=== PATIENT | female | born 1975 | race Caucasian/White ===

== ENCOUNTER 2020-05-21 08:34 | Outpatient (CLI) | payer BC, SELFPAY ==
--- NOTE | ~2020-05-21 | MR_ITS ---
EXAMINATION: MR brain/brain stem wo con DATE: 05/21/2020 09:51 INDICATION: Seizure. TECHNIQUE: Magnetic resonance imaging (MRI) of the brain and brainstem was performed without intraven ous contrast. Sequences included sagittal and axial T1-weighted FSE, axial diffusion-weighted FS EPI, axial T2*-weighted GRE, axial T2-weighted FLAIR Propeller, axial T2-weighted Propeller, coronal T2-w eighted FLAIR, and coronal T1-weighted 3D FSPGR. Apparent diffusion coefficient (ADC) maps were creat ed. COMPARISON: None. FINDINGS: There is chronic encephalomalacia in anterior right frontal lobe. There is no intracranial hemorrhage, acute infarction, or abnormal intracranial mass lesion. The hippocampi are normal and sym metric. The ventricles are normal in size. There is mild mucosal thickening in the ethmoid sinuses. T he orbits are normal. The mastoid air cells are normal. IMPRESSION: 1. Chronic encephalomalacia in anterior right frontal lobe. Reviewed, dictated and finalized at location A.
== END 2020-05-21 08:35 | disposition home or self-care (01) ==
PROVIDERS: PCP Family Medicine; Visit Provider Psychiatry & Neurology Neurology
DX: R56.9 Unspecified convulsions (principal); G93.89 Other specified disorders of brain
CPT/HCPCS: 70551

== ENCOUNTER → 2020-07-28 14:21 | Outpatient (CLI) | payer BC, SELFPAY ==
--- NOTE | ~2020-07-28 | MM_ITS ---
EXAMINATION: MM screening [facility] w [facility]o HISTORY: Screening mammogram TECHNIQUE: Craniocaudal and mediolateral oblique 3-D tomosynthesis images were obtained and synthetic 2-D images were generated. CAD analysis was submitted and interpreted. COMPARISON: 07/18/2019 bilateral digital screening mammogram 05/17/2017 diagnostic left digital mammogram 04/23/2017 bilateral digital screening mammogram BREAST PARENCHYMAL COMPOSITION: The breasts are heterogeneously dense, which may obscure small masses . FINDINGS: There is no evidence of suspicious mass, calcification, or architectural distortion to sugg est malignancy in either breast. There has been no suspicious interval change. IMPRESSION: 1. No mammographic evidence of malignancy. 2. Recommend routine screening mammography in one year. BI-RADS Category 1: Negative Reviewed, dictated and finalized at location A.
== END ==
PROVIDERS: Visit Provider Obstetrics & Gynecology
DX: Z12.31 Encounter for screening mammogram for malignant neoplasm of breast (principal)
CPT/HCPCS: 77063; 77067

== ENCOUNTER → 2021-08-16 15:04 | Outpatient (CLI) | payer BC, SELFPAY ==
--- NOTE | ~2021-08-16 | MM_ITS ---
EXAMINATION: MM screening [facility] w [facility] HISTORY: Screening TECHNIQUE: Craniocaudal and mediolateral oblique 3-D tomosynthesis images were obtained and synthetic 2-D images were generated. CAD analysis was submitted and interpreted. COMPARISON: Comparison to multiple prior studies sequentially, with oldest reviewed study dated 04/23. BREAST PARENCHYMAL COMPOSITION: The breasts are heterogeneously dense, which may obscure small masses . FINDINGS: There is no evidence of suspicious mass, calcification, or architectural distortion to sugg est malignancy in either breast. There has been no suspicious interval change. IMPRESSION: 1. No mammographic evidence of malignancy. 2. Recommend routine screening mammography in one year. BI-RADS Category 1: Negative Reviewed, dictated and finalized at location A.
== END ==
PROVIDERS: Visit Provider Obstetrics & Gynecology
DX: Z12.31 Encounter for screening mammogram for malignant neoplasm of breast (principal)
CPT/HCPCS: 77063; 77067

== ENCOUNTER → 2022-08-23 13:17 | Outpatient (CLI) | payer BC, SELFPAY ==
--- NOTE | ~2022-08-23 | MM_ITS ---
EXAMINATION: MM screening [facility] w [facility] HISTORY: Screening TECHNIQUE: Craniocaudal and mediolateral oblique 3-D tomosynthesis images were obtained and synthetic 2-D images were generated. CAD analysis was submitted and interpreted. COMPARISON: Comparison to multiple prior studies sequentially, with oldest reviewed study dated 04/23. BREAST PARENCHYMAL COMPOSITION: The breasts are heterogeneously dense, which may obscure small masses FINDINGS: There is no evidence of suspicious mass, calcification, or architectural distortion to sugg est malignancy in either breast. There has been no suspicious interval change. IMPRESSION: 1. No mammographic evidence of malignancy. 2. Recommend routine screening mammography in one year. BI-RADS Category 1: Negative Reviewed, dictated and finalized at location A.
== END ==
PROVIDERS: PCP Family Medicine; Visit Provider Obstetrics & Gynecology
DX: Z12.31 Encounter for screening mammogram for malignant neoplasm of breast (principal)
CPT/HCPCS: 77063; 77067

== ENCOUNTER 2022-08-25 01:01 | Day surgery (SDC) | payer BC, SELFPAY ==
[2022-08-11 13:02] VITALS: BMI 29.8
--- NOTE | 2022-08-24 14:58 | PM.HPGS ---
History of Present Illness History of Present Illness Consent: Risks, benefits, and alternatives have been discussed and questions answered. Patient agrees to proceed with procedure. Chief complaint: positive hemoccult stool, bloating Narrative: Aimee Cody is a 47 year old female undergoing colonoscopy to investigate a stool which was positive for blood Review of Systems Review of Systems: All systems reviewed & are unremarkable except as noted in HPI and below PMFSH Past Medical History Medical History Epilepsy Family History Family History Father Diabetes mellitus Hypertension Social History Social History Smoking packs per day: 1 Smoking cigarettes per day: 20.0 Years smoked: 8 Smoking pack-years: 8.00 Smoking status: Former smoker Second hand tobacco smoke exposure: No Smoking end date: 11/05/00 Alcohol intake: current Alcohol use details: seldom; socially Substance use: never Substance use type: marijuana Last use: 01/2022 Living arrangements: other Additional living arrangements comments: with sp Gender identity (if verbalized by the patient): Female Meds Home Medications and Allergies Home Medications Medication Instructions Recorded Confirmed Type phenytoin sodium extended 100 mg See Rx Instructions .Route 06/09/20 08/11/22 Rx capsule .COMPLEX #105 caps levonorgestrel 20 mcg/24 hours (8 1 device intrauterine ONCE 01/21/21 08/11/22 History yrs) 52 mg intrauterine device (Mirena) spironolactone 100 mg tablet 100 mg PO DAILY 08/11/22 08/11/22 History Allergies Allergy/AdvReac Type Severity Reaction Status Date / Time No Known Allergies Allergy Verified 08/25/22 10:03 Exam Resp: Auscultation: clear to auscultation bilaterally Cardio: Rate: regular rate Rhythm: regular rhythm GI: GI Palp: Yes Soft to palpation and No Tenderness to palpation present (GI) Assessment and Plan Assessment and plan (1) Blood in stool: Code(s): K92.1 - Melena Status: Acute Assessment and Plan: Colonoscopy with possible biopsy or polypectomy or cautery or injection of substances.
[2022-08-25 10:07] VITALS: BP 114/69; PULSE 89; RESP 18; TEMP 36.1; O2SAT 100
[2022-08-25] MEDS: LACTATED RINGERS 1,000 ML 150 ML IV CONT (10:17)
--- NOTE | 2022-08-25 10:48 | P.PNAN_ITS ---
Anes - Initial Pre Proc Eval Procedure: Operation Date: 08/25/22 11:15 Proposed Procedures p Colonoscopy - Al Awad MD Date/Time: 08/25/22 10:48 Surgeon: Al Awad MD Pre Op Diagnosis: positive hemoccult stool, bloating Patient Data Age: 47 Gender: F Height: 1.7 m Weight: 86.6 kg Last Vital Signs Temp 97 F L 08/25/22 10:07 Pulse 89 08/25/22 10:07 Resp 18 08/25/22 10:07 BP 114/69 08/25/22 10:07 Pulse Ox 100 08/25/22 10:07 O2 Del Method Room Air 08/25/22 10:07 Allergies Allergy/AdvReac Type Severity Reaction Status Date / Time No Known Allergies Allergy Verified 08/25/22 10:03 Home Medications Medication Instructions Recorded Confirmed Type phenytoin sodium extended 100 mg See Rx Instructions .Route 06/09/20 08/11/22 Rx capsule .COMPLEX #105 caps levonorgestrel 20 mcg/24 hours (8 1 device intrauterine ONCE 01/21/21 08/11/22 History yrs) 52 mg intrauterine device (Mirena) spironolactone 100 mg tablet 100 mg PO DAILY 08/11/22 08/11/22 History Patient hx anesthesia problems: none Family hx anesthesia problems: none Results Review: All pre-operative results and documents have been reviewed as part of the pre- operative evaluation. [facility] Past Medical History Medical History Epilepsy Family History Family History Father Diabetes mellitus Hypertension Social History Social History Smoking packs per day: 1 Smoking cigarettes per day: 20.0 Years smoked: 8 Smoking pack-years: 8.00 Smoking status: Former smoker Second hand tobacco smoke exposure: No Smoking end date: 11/05/00 Alcohol intake: current Alcohol use details: seldom; socially Substance use: never Substance use type: marijuana Last use: 01/2022 Living arrangements: other Additional living arrangements comments: with sp Gender identity (if verbalized by the patient): Female Anes - Eval Final PreProcedure Day of Procedure 08/25/22 10:48 Patient weight: normal Heart: regular rate and rhythm Lungs: clear to auscultation Airway: Mallampati scale class II Neurological: alert and oriented Last oral intake: >/= 8 hours ASA classification: III Emergent: no Anesthetic plan: proceed Anesthesia type and monitoring: general GIVS and standard monitoring Results Review: All pre-operative results and documents have been reviewed as part of the pre- operative evaluation. Informed Consent: The patient's anesthetic plan and its attendant risks and benefits were discussed with the patient/family/POA. Questions were solicited and answers provided to the satisfaction of the patient/family/POA.
[2022-08-25 11:15] VITALS: BP 99/64; PULSE 74; RESP 17; O2SAT 100
[2022-08-25 11:25] VITALS: BP 118/77; PULSE 88; RESP 21; O2SAT 100
[2022-08-25 11:35] VITALS: BP 123/82; PULSE 77; RESP 18; O2SAT 100
== END 2022-08-25 11:40 | disposition home or self-care (01) ==
PROVIDERS: PCP Family Medicine; Visit Provider Internal Medicine Gastroenterology
PROC: 0DJD8ZZ Inspection of Lower Intestinal Tract, Via Natural or Artificial Opening Endoscopic (ICD-10-PCS; CPT 45378; principal; 2022-08-25 11:15)
DX: K92.1 Melena (principal); K64.8 Other hemorrhoids; K57.30 Diverticulosis of large intestine without perforation or abscess without bleeding; K62.1 Rectal polyp; G40.909 Epilepsy, unspecified, not intractable, without status epilepticus; Z87.891 Personal history of nicotine dependence
CPT/HCPCS: 45385; 88305; J2704; J7120

== ENCOUNTER → 2023-10-12 07:10 | Outpatient (CLI) | payer BC, SELFPAY ==
--- NOTE | ~2023-10-12 | MM_ITS ---
EXAMINATION: MM screening [facility] BI w alvaro HISTORY: Screening mammogram TECHNIQUE: Craniocaudal and mediolateral oblique 3-D tomosynthesis images were obtained and synthetic 2-D images were generated. CAD analysis was submitted and interpreted. COMPARISON: 08/23/2022, 08/16/2021, 07/28/2020, 07/18/2019 BREAST PARENCHYMAL COMPOSITION: The breasts are heterogeneously dense, which may obscure small masses . FINDINGS: No suspicious mass, calcification, or architectural distortion are identified in either rome ast to suggest malignancy. There has been no suspicious interval change. IMPRESSION: 1. No mammographic evidence of malignancy. 2. Recommend routine screening mammography in one year. BI-RADS Category 1: Negative Reviewed, dictated and finalized at location A. [employer]
== END ==
PROVIDERS: PCP Obstetrics & Gynecology; Visit Provider Obstetrics & Gynecology
DX: Z12.31 Encounter for screening mammogram for malignant neoplasm of breast (principal)
CPT/HCPCS: 77063; 77067

== ENCOUNTER 2024-12-12 12:16 | Outpatient (CLI) | payer BC, SELFPAY ==
--- NOTE | ~2024-12-12 | MM_ITS ---
EXAMINATION: MM screening [facility] w [facility] HISTORY: Screening mammogram TECHNIQUE: Craniocaudal and mediolateral oblique 3-D tomosynthesis images were obtained and synthetic 2-D images were generated. CAD analysis was submitted and interpreted. COMPARISON: 10/12/2023, 08/23/2022, 08/16/2021, 07/28/2020 BREAST PARENCHYMAL COMPOSITION:Dense: The breasts are heterogeneously dense, which may obscure small masses. FINDINGS: No suspicious mass, calcification, or architectural distortion are identified in either rome ast to suggest malignancy. There has been no suspicious interval change. IMPRESSION: No mammographic evidence of malignancy. Recommend routine screening mammography in one year. BI-RADS Category 1: Negative Reviewed, dictated and finalized at location . STAKER
== END 2024-12-12 12:17 | disposition home or self-care (01) ==
PROVIDERS: PCP Family Medicine; Visit Provider Obstetrics & Gynecology
DX: Z12.31 Encounter for screening mammogram for malignant neoplasm of breast (principal)
CPT/HCPCS: 77063; 77067